=== PATIENT | male | born 1945 | race Caucasian/White ===

== ENCOUNTER 2017-11-28 19:49 | Emergency (ER) | payer OTHER ==
[~2017-11-28] VITALS: Ht 182.9 cm; Wt 83.9 kg
[~2017-11-28 19:49] MED LIST: [UNRECOGNIZED DRUG - REMARK]
--- NOTE | 2017-11-28 21:48 | Diagnostic Imaging Report ---
EXAM: CHEST 2 VIEWS, PA and lateral INDICATION: Lower extremity edema, cough COMPARISON: None FINDINGS: LINES/TUBES: None LUNGS: No consolidations or edema. PLEURA: No effusions or pneumothorax. HEART AND MEDIASTINUM: Normal size and contour. BONES AND SOFT TISSUES: No acute findings. Lower cervical spine surgical hardware. IMPRESSION: No evidence of pneumonia. Signed by: Dr. Charmaine Walden M.D. on 11/28/2017 9:45 PM
[2017-11-29 02:05] LABS: BASOPHILS % 0.6 % (0.0-1.0); EOSINOPHILS # (AUTO) 0.3 (0.0-0.4); EOSINOPHILS % 5.9 % (0.0-6.0); HEMATOCRIT 43.1 % (38.2-49.6); HEMOGLOBIN 14.2 g/dL (14.0-18.0); LYMPHOCYTES # (AUTO) 1.4 (1.0-3.2); LYMPHOCYTES % 28.9 % (18.0-39.1); MEAN CORPUSCULAR HEMOGLOBIN 28.4 pg (28-32); MEAN CORPUSCULAR HGB CONC 32.9 g/dL (31-35); MEAN CORPUSCULAR VOLUME 86.2 fL (81-99); MONOCYTES # (AUTO) 0.6 (0.2-0.8); MONOCYTES % 11.5 % (4.4-11.3); NEUTROPHILS # (AUTO) 2.6 (2.1-6.9); NEUTROPHILS % 52.7 % (38.7-80.0); PLATELET COUNT 191 x10e3/uL (140-360); RED CELL DISTRIBUTION WIDTH 14.4 % (11.7-14.4)
[2017-11-29 02:12] LABS: INR 1.01; PROTHROMBIN TIME 12.5 seconds (11.9-14.5)
[2017-11-29 02:13] LABS: PARTIAL THROMBOPLASTIN TIME 32.2 seconds (23.8-35.5)
[2017-11-29 02:21] LABS: ALANINE AMINOTRANSFERASE 18 IU/L (0-55); ALBUMIN 3.3 g/dL (3.5-5.0); ALBUMIN/GLOBULIN RATIO 0.8 (0.8-2.0); ALKALINE PHOSPHATASE 81 IU/L (40-150); ANION GAP 14.2 mmol/L (8-16); BLOOD UREA NITROGEN 13 mg/dL (7-26); BUN/CREATININE RATIO 16 (6-25); CALCIUM 9.3 mg/dL (8.4-10.2); CARBON DIOXIDE 29 mmol/L (22-29); CHLORIDE 103 mmol/L (98-107); CREATINE KINASE 55 IU/L (30-200); CREATININE, SERUM 0.79 mg/dL (0.72-1.25); EST GLOMERULAR FILTRATION RATE > 60 ML/MIN (60-); GLUCOSE 81 mg/dL (74-118); MAGNESIUM 2.1 MG/DL (1.3-2.1); POTASSIUM 4.2 mmol/L (3.5-5.1); SODIUM 142 mmol/L (136-145)
[2017-11-29 02:34] LABS: CLARITY,URINE CLEAR (CLEAR); COLOR,URINE YELLOW (YELLOW); KETONES,URINE NEGATIVE (NEGATIVE); LEUKOCYTE ESTERASE ,URINE NEGATIVE (NEGATIVE); NITRITE,URINE NEGATIVE (NEGATIVE); PROTEIN,URINE DIPSTICK NEGATIVE (NEGATIVE); URINE UROBILINOGEN 0.2 mg/dL (0.2 - 1)
[2017-11-29 02:35] LABS: BILIRUBIN,URINE NEGATIVE (NEGATIVE)
[2017-11-29 02:36] LABS: EPITHELIAL CELLS,URINE FEW /LPF; RBC,URINE 0-5 /HPF (0-5); WBC,URINE (MAN) 0-5 /HPF (0-5)
--- NOTE | 2017-11-29 05:25 | Diagnostic Imaging Report ---
EXAM: FOOT RIGHT COMPLETE, AP, lateral and oblique INDICATION: Right foot wound ball of foot COMPARISON: None FINDINGS: BONES: No acute fractures. Age indeterminate deformity of the second digit distal tuft. Moderate plantar calcaneal spur. JOINTS: No malalignment. SOFT TISSUES: Soft tissue swelling plantar forefoot. IMPRESSION: Age indeterminate deformity of the second digit distal tuft. If there is clinical concern for osteomyelitis, consider MRI of the foot for more sensitive evaluation. Soft tissue swelling plantar forefoot without radiopaque foreign body. Signed by: Dr. Charmaine Walden M.D. on 11/29/2017 5:22 AM
== END 2017-11-29 05:55 | disposition home or self-care (01) ==
LOC: ER 19:49
DX: M79.662 Pain in left lower leg (principal); M79.661 Pain in right lower leg; L03.116 Cellulitis of left lower limb; L03.115 Cellulitis of right lower limb; I10 Essential (primary) hypertension
CPT/HCPCS: 36415; 71046; 80053; 81001; 82550; 82553; 83735; 83880; 84484; 85025; 85610; 85730; 87086; 93970; 99284